=== PATIENT | male | born 1980 | race Two or more races ===

== ENCOUNTER 2024-10-21 11:48 | Emergency (ER) | payer MEDICAID ==
[~2024-10-21] VITALS: Ht 167.6 cm; Wt 93.5 kg
[2024-10-21 12:12] VITALS: BP 136/87; PULSE 73; RESP 18; TEMP 97.4; O2SAT 97
[2024-10-21] MEDS ORDERED: BACDST PO (12:36)
--- NOTE | 2024-10-21 12:37 | ED.PDOC ---
Musculoskeletal HPI Comments This is a 44-year-old male who comes in with an ingrown toenail that is infected. Apparently his tried to remove the ingrown toenail which she did but now developed an infection after that he states it is painful it has been draining in his very tender to touch. Denies any fever or chills. Chief Complaint: Lower Extremity Time Seen by MD: 12:30 Primary Care Provider: ? Reviewed Notes: Nurses Notes, Medications, Allergies Allergies: Coded Allergies: NO KNOWN ALLERGIES (Unverified , 06/23/15) Information Source: Patient Mode of Arrival: Ambulatory Past Medical History Surgical History (Other): Cysts removed Social History Smoker: Non-Smoker Alcohol: Occasionally Drugs: Denies Drug Use Lives In: Home Integumetry: reports: others (Right great toe with pain and tenderness) All Other Systems: Reviewed and Negative Physical Exam General Appearance: No Apparent Distress, Normal HEENT: Normal ENT Inspection, Pale Conjuntivae (R), Pharynx Normal, TMs Normal Neck: Full Range of Motion, Non-Tender, Normal Inspection, Supple Respiratory: Lungs Clear, No Respiratory Distress, Normal Breath Sounds Cardiovascular: Regular Rate/Rhythm Breast Exam: Deferred Gastrointestinal: Non Tender, Normal Bowel Sounds Genitalia: Deferred Pelvic: Deferred Rectal: Deferred Extremities: Inflammation, Non-tender, Swelling, Tender Neurologic: Alert, Normal Affect, Normal Mood Cerebellar Function: NOT DONE Reflexes: NOT DONE Skin: Dry, Warm, Wounds (Right great toenail with erythema warmth and drainage with swelling.), Other Lymphatic: No Adenopathy Was a procedure done? Was a procedure done?: No Differential Diagnosis EXT Differential Diagnosis: Laceration X-Ray, Labs, Meds, VS Vital Signs Date Time Temp Pulse Resp B/P (MAP) Pulse Ox O2 Delivery O2 Flow Rate FiO2 10/21/24 12:12 73 18 97 Room Air 10/21/24 12:12 97.4 73 18 136/87 (103) 97 97.4 10/21/24 11:56 97.4 7 18 136/87 (103) 97 97.4 X-Ray, Labs, Meds, VS Comment Patient seen and examined by me. Patient does have a cellulitic infection after his removed his ingrown toenail on his right great toe. I will place him on antibiotics. I have instructed him to wear open shoes with a dressing so that his feet do not keep rubbing against the inside of his shoe this will help also to elevate his leg as much as possible. Time of 1ST Reevaluation: 12:34 Reevaluation 1ST: Improved Patient Education/Counseling: Diagnosis, Treatment, Prognosis, Need For Follow Up Family Education/Counseling: No Family Present Departure 1 Departure Time of Disposition: 12:34 Impression: Primary Impression: Cellulitis Additional Impression: Ingrown toenail of right foot Disposition: HOME / SELF CARE / HOMELESS Condition: Good Additional Instructions: Please keep your toe clean and dry Cover it with a bandage in try not to wear shoes that will cause it to be bumped every time you walk Do not do any more removal of the toenail Finish all the antibiotics as directed, even if you feel better you must finish all the meds or they will work. e-Prescriptions Sulfamethoxazole W/Trimethopri (Bactrim Ds Tablet) 1 Tab Tb 1 TAB PO BID for 7 Days, #14 TAB Prov: LACI LU 10/21/24 Discharged With: Self Critical Care Note Critical Care Time?: No Stability Stability form required: No LACI LU Oct 21, 2024 12:37
== END 2024-10-21 12:42 | disposition home or self-care (01) ==
LOC: ER 11:55
DX: L03.90 Cellulitis, unspecified (principal); L60.0 Ingrowing nail